=== PATIENT | male | born 1990 | race Caucasian/White ===

== ENCOUNTER 2018-03-25 16:30 | Inpatient (IN) | payer OTHER ==
[2018-03-25] VITALS (20 sets, daily range): BP systolic 113–120; BP diastolic 49–82; PULSE 102–116; TEMP 97.6–98; O2SAT 96–98
[~2018-03-25] VITALS: Ht 177.8 cm; Wt 104.2 kg
[2018-03-26] VITALS (354 sets, daily range): BP systolic 106–136; BP diastolic 58–84; PULSE 69–84; TEMP 97.8–98.8; O2SAT 93–100
[2018-03-26 05:31] LABS: BASO # 0.1 (0.0-0.2); BASO % 0.8 % (0.0-2.0); EOS % 0.3 % (0-4.0); GRAN # 7.5 (1.4-6.5); GRAN % 63.5 % (42.2-75.2); HEMATOCRIT 42.2 % (42.0-52.0); HEMOGLOBIN 14.1 g/dl (13.5-18.0); LYMPH # 3.1 (1.2-3.4); LYMPH % 26.4 % (20.0-51.0); MEAN CELL VOLUME 87 fl (80.0-100.0); MEAN CORPUSCULAR HEMOGLOBIN 29 pg (27.0-31.0); MEAN CORPUSCULAR HGB CONC 33 g/dl (33.0-37.0); MONO % 8.4 % (1.7-9.3); PLATELET COUNT 271 K/mm3 (130-400); RED BLOOD COUNT 4.86 M/mm3 (4.20-5.60); REDCELL DISTRIBUTION WIDTH-CV 13.2 % (11.5-14.5)
[2018-03-26 05:37] LABS: CALCIUM 8.6 mg/dL (8.4-10.2); CHOLESTEROL RISK RATIO 5.6; CREATININE, serum 0.81 mg/dL (0.66-1.25); POTASSIUM 3.9 mmol/L (3.4-5.0)
[2018-03-26 05:56] LABS: TROPONIN-I 0.044 ng/mL (0.000-0.034)
[2018-03-26 08:52] LABS: MAGNESIUM 2.1 mg/dL (1.6-2.3)
[2018-03-26 09:23] LABS: TSH w REFLEX 2.05 uIU/mL (0.465-4.680)
[2018-03-27] VITALS (438 sets, daily range): BP systolic 107–134; BP diastolic 59–90; PULSE 66–109; TEMP 97.7–98.7; O2SAT 90–99
[2018-03-27 05:19] LABS: BASO # 0.1 (0.0-0.2); BASO % 1.2 % (0.0-2.0); GRAN # 3.5 (1.4-6.5); GRAN % 51.9 % (42.2-75.2); HEMATOCRIT 42.1 % (42.0-52.0); HEMOGLOBIN 14.6 g/dl (13.5-18.0); LYMPH # 2.4 (1.2-3.4); LYMPH % 35.9 % (20.0-51.0); MEAN CELL VOLUME 86 fl (80.0-100.0); MEAN CORPUSCULAR HEMOGLOBIN 30 pg (27.0-31.0); MEAN CORPUSCULAR HGB CONC 35 g/dl (33.0-37.0); MEAN PLATELET VOLUME 10.6 fl (7.4-10.4); MONO # 0.7 (0.1-0.6); MONO % 10.4 % (1.7-9.3); PLATELET COUNT 247 K/mm3 (130-400); REDCELL DISTRIBUTION WIDTH-CV 13.2 % (11.5-14.5)
[2018-03-27 05:29] LABS: CALCIUM 9.3 mg/dL (8.4-10.2); CREATININE, serum 0.8 mg/dL (0.66-1.25); POTASSIUM 3.9 mmol/L (3.4-5.0)
[2018-03-27] MEDS ORDERED: OMEGA-3 1000 MG1 CAP PO (15:29)
[2018-03-27] MEDS ORDERED: ASPIRIN 81M81 MG/TA2 PO (15:29)
== END 2018-03-27 17:17 | disposition home or self-care (01) | DRG 310 ==
LOC: IMCU 16:30 → ICU 17:59 → MEDICAL 03-27 11:07
PROVIDERS: Hospitalist; Nurse Practitioner; Physician Assistant
DX: I48.0 Paroxysmal atrial fibrillation (principal); E87.5 Hyperkalemia; E78.1 Pure hyperglyceridemia; G47.33 Obstructive sleep apnea (adult) (pediatric)
CPT/HCPCS: 99223-AI; 99232-AI; 99239; J7030; J7050; Q9967